=== PATIENT | male | born 1995 | race Caucasian/White ===

== ENCOUNTER 2018-10-08 21:28 | Emergency (ER) | payer SELFPAY ==
[2018-10-08] MEDS ORDERED: Sodium Chloride 0.9% 2.5 ML Syringe FLUSH PRN (21:58)
[2018-10-08] MEDS ORDERED: Sodium Chloride 0.9% 10 ML Syringe FLUSH PRN (21:58)
[2018-10-08] MEDS ORDERED: Aspirin 81 MG Tab.Chew PO ONE (22:09)
[2018-10-08] MEDS ORDERED: Ketorolac 30 MG/ML SDV IVPUSH ONE (22:09)
[2018-10-08] MEDS ORDERED: Sodium Chloride 0.9% 1,000 ML IV ONE (22:09)
--- NOTE | 2018-10-08 22:13 | EDM.PDOC ---
ED HPI GENERAL MEDICAL PROBLEM - General Chief Complaint: Chest Pain Stated Complaint: PT HAS CHEST PAIN Time Seen by Provider: 10/08/18 21:57 - History of Present Illness INITIAL COMMENTS - FREE TEXT/NARRATIVE: HISTORY AND PHYSICAL: History of present illness: The patient is a 23-year-old male with no significant past medical history who presents with 2 1/2 days of having shortness of breath and then points tenderness on the left side of his chest mostly when he is at work or doing activities. 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 He has no significant social history, only chews tobacco and occasionally drinks but no drug use, he has no significant family history for cardiac disease and he has been eating and drinking normally. When he gets these episodes he says he sometimes gets sweaty but it is difficult to say because he is often at work but he does not get nauseated or vomit and he doesn't get lightheaded or pass out. He has no leg pain or swelling. He has no recent trauma and no upper respiratory symptoms. He's been taking Tylenol only for the pain and when he indicates the area of the chest discomfort is just to the left of the sternum and does not radiate. Review of systems: As per history of present illness and below otherwise all systems reviewed and negative. Past medical history: As per history of present illness and as reviewed below otherwise noncontributory. Surgical history: As per history of present illness and as reviewed below otherwise noncontributory. Social history: No reported history of drug or alcohol abuse. Family history: As per history of present illness and as reviewed below otherwise noncontributory. Physical exam: General: Well-developed well-nourished man who is fit appearing and nontoxic and moves easily in the ED. Vital signs are noted by me. HEENT: Atraumatic, normocephalic, pupils reactive, negative for conjunctival pallor or scleral icterus, mucous membranes moist, throat clear, neck supple, nontender, trachea midline. Lungs: Clear to auscultation, breath sounds equal bilaterally, chest wall with some mild point tenderness just at the left of the sternum without defects deformities or crepitus. The patient says that this does reproduce the pain some level. Heart: S1S2, regular, negative for clicks, rubs, or JVD. Abdomen: Soft, nondistended, nontender. Negative for masses or hepatosplenomegaly. Negative for costovertebral tenderness. Pelvis: Stable nontender. Genitourinary: Deferred. Rectal: Deferred. Extremities: Atraumatic, negative for cords or calf pain. Neurovascular unremarkable. No pedal edema or leg asymmetry Neuro: Awake, alert, oriented. Cranial nerves II through XII unremarkable. Cerebellum unremarkable. Motor and sensory unremarkable throughout. Exam nonfocal. Diagnostics: EKG chest x-ray CBC CMP troponin TSH d-dimer Therapeutics: IV O2 monitor IV fluids Toradol aspirin Patient says that he feels basically the same since arriving here but he is aware of all testing results and I have offered him observation admission which he declines. He would like to do follow-up. Except them. Impression: Episodic chest pain with dyspnea Definitive disposition and diagnosis as appropriate pending reevaluation and review of above. Treatments WEB ARCHITECT: Reports: Aspirin left side chest Pain Score (Numeric/FACES): 5 - Related Data Allergies Allergy/AdvReac Type Severity Reaction Status Date / Time No Known Allergies Allergy Verified 10/08/18 21:31 Home Meds: Home Meds . [No Known Home Meds] 10/08/18 [History] Past Medical History - Past Health History Medical/Surgical History: Denies Medical/Surgical History Respiratory History: Reports: None Gastrointestinal History: Reports: None Genitourinary History: Reports: None Musculoskeletal History: Reports: None Neurological History: Reports: None Psychiatric History: Reports: None Endocrine/Metabolic History: Reports: None Hematologic History: Reports: None Oncologic (Cancer) History: Reports: None Dermatologic History: Reports: None - Infectious Disease History Infectious Disease History: Reports: Chicken Pox - Past Surgical History Head Surgeries/Procedures: Reports: None Social & Family History - Family History Family Medical History: Noncontributory - Tobacco Use Smoking Status *Q: Current Every Day Smoker Years of Tobacco use: 3 Packs/Tins Daily: 0.5 - Caffeine Use Caffeine Use: Reports: None - Recreational Drug Use Recreational Drug Use: No ED ROS GENERAL - Review of Systems Review Of Systems: ROS reveals no pertinent complaints other than HPI. ED EXAM, GENERAL - Physical Exam Exam: See Below (See dictation) Course - Vital Signs Last Recorded V/S: Last Vital Signs Temp 36.6 C 10/08/18 21:32 Pulse 83 10/08/18 23:11 Resp 16 10/08/18 23:11 BP 129/68 10/08/18 23:11 Pulse Ox 98 10/08/18 23:11 - Orders/Labs/Meds Orders: Active Orders 24 hr Category Date Time Status Cardiac Monitoring [RC] . DIRECTED Care 10/08/18 21:58 Active EKG Documentation Completion [RC] STAT Care 10/08/18 21:58 Active Oxygen Therapy, ED [RC] ASDIRECTED Care 10/08/18 21:58 Active Pulse Oximetry [RC] ASDIRECTED Care 10/08/18 21:58 Active Sodium Chloride 0.9% [Saline Flush] Med 10/08/18 21:58 Active 10 ml FLUSH ASDIRECTED PRN Sodium Chloride 0.9% [Saline Flush] Med 10/08/18 21:58 Active 2.5 ml FLUSH ASDIRECTED PRN Saline Lock Insert [OM.PC] Stat Oth 10/08/18 21:58 Ordered Medication Orders Sodium Chloride (Saline Flush) 10 ml FLUSH ASDIRECTED PRN PRN Reason: Keep Vein Open Sodium Chloride (Saline Flush) 2.5 ml FLUSH ASDIRECTED PRN PRN Reason: Keep Vein Open Labs: Laboratory Tests 10/08/18 10/08/18 10/08/18 Range/Units 22:19 22:19 22:19 WBC 7.11 (4.0-11.0) K/uL RBC 4.63 (4.50-5.90) M/uL Hgb 14.1 (13.0-17.0) g/dL Hct 41.6 (38.0-50.0) % MCV 89.8 (80.0-98.0) fL MCH 30.5 (27.0-32.0) pg MCHC 33.9 (31.0-37.0) g/dL RDW Std Deviation 45.0 (28.0-62.0) fl RDW Coeff of Obey 14 (11.0-15.0) % Plt Count 272 (150-400) K/uL MPV 9.10 (7.40-12.00) fL Neut % (Auto) 34.2 L (48.0-80.0) % Lymph % (Auto) 46.8 H (16.0-40.0) % [place] % (Auto) 8.9 (0.0-15.0) % Eos % (Auto) 10.0 H (0.0-7.0) % Baso % (Auto) 0.1 (0.0-1.5) % Neut # (Auto) 2.4 (1.4-5.7) K/uL Lymph # (Auto) 3.3 H (0.6-2.4) K/uL [place] # (Auto) 0.6 (0.0-0.8) K/uL Eos # (Auto) 0.7 (0.0-0.7) K/uL Baso # (Auto) 0.0 (0.0-0.1) K/uL Nucleated RBC % 0.0 /100WBC Nucleated RBCs # 0 K/uL D-Dimer, Quantitative 0.58 H (0.0-0.50) mg/L FEU Sodium 141 (136-148) mmol/L Potassium 3.7 (3.5-5.1) mmol/L Chloride 106 (98-107) mmol/L Carbon Dioxide 27.1 (21.0-32.0) mmol/L BUN 16 (7.0-18.0) mg/dL Creatinine 0.9 (0.8-1.3) mg/dL Est Cr Clr Drug Dosing 137.12 mL/min Estimated GFR (MDRD) > 60.0 ml/min Glucose 92 (74-106) mg/dL Calcium 9.3 (8.5-10.1) mg/dL Total Bilirubin 1.0 (0.2-1.0) mg/dL AST 19 (15-37) IU/L ALT 28 (14-63) IU/L Alkaline Phosphatase 80 (46-116) U/L Troponin I < 0.050 (0.000-0.056) ng/mL Total Protein 7.8 (6.4-8.2) g/dL Albumin 4.1 (3.4-5.0) g/dL Globulin 3.7 (2.6-4.0) g/dL Albumin/Globulin Ratio 1.1 (0.9-1.6) TSH 3rd Generation 1.90 (0.36-3.74) uIU/mL Meds: Medications Generic Name Dose Route Start Last Admin Trade Name Freq PRN Reason Stop Dose Admin Sodium Chloride 10 ml 10/08/18 21:58 Saline Flush FLUSH ASDIRECTED PRN Keep Vein Open Sodium Chloride 2.5 ml 10/08/18 21:58 Saline Flush FLUSH ASDIRECTED PRN Keep Vein Open Discontinued Medications Generic Name Dose Route Start Last Admin Trade Name Freq PRN Reason Stop Dose Admin Aspirin 324 mg 10/08/18 22:09 10/08/18 22:29 Aspirin PO 10/08/18 22:10 324 mg ONETIME ONE Administration Sodium Chloride 1,000 mls @ 999 mls/hr 10/08/18 22:09 10/08/18 22:29 Normal Saline IV 10/08/18 23:09 999 mls/hr STAT ONE Administration Iopamidol 75 ml 10/08/18 23:55 10/08/18 23:55 Isovue Multipack-370 (76%) IVPUSH 10/08/18 23:56 75 ml ONETIME STA Administration Ketorolac Tromethamine 30 mg 10/08/18 22:09 10/08/18 22:29 Toradol IVPUSH 10/08/18 22:10 30 mg ONETIME ONE Administration Departure - Departure Time of Disposition: 00:24 Disposition: Home, Self-Care 01 Condition: Good Clinical Impression: Chest pain Qualifiers: Chest pain type: unspecified Qualified Code(s): R07.9 - Chest pain, unspecified Dyspnea Qualifiers: Dyspnea type: unspecified Qualified Code(s): R06.00 - Dyspnea, unspecified - Discharge Information Referrals: PCP,None [Primary Care Provider] - Forms: ED Department Discharge Additional Instructions: The following information is given to patients seen in the emergency department who are being discharged to home. This information is to outline your options for follow-up care. We provide all patients seen in our emergency department with a follow-up referral. The need for follow-up, as well as the timing and circumstances, are variable depending upon the specifics of your emergency department visit. If you don't have a primary care physician on staff, we will provide you with a referral. We always advise you to contact your personal physician following an emergency department visit to inform them of the circumstance of the visit and for follow-up with them and/or the need for any referrals to a consulting specialist. The emergency department will also refer you to a specialist when appropriate. This referral assures that you have the opportunity for followup care with a specialist. All of these measure are taken in an effort to provide you with optimal care, which includes your followup. Under all circumstances we always encourage you to contact your private physician who remains a resource for coordinating your care. When calling for followup care, please make the office aware that this follow-up is from your recent emergency room visit. If for any reason you are refused follow-up, please contact the emergency department at and ask to speak to the emergency department charge nurse. [facility] Primary care- Internal Medicine and Family [address] [address] Please call the clinic this morning at 8:30 and schedule a follow-up appointment making sure to tell them that you are on the expedited list. Please take 02/28/24 milligram aspirin every day until you're followed up in the clinic. Push hydration and return to ER as needed and as discussed - My Orders Last 24 Hours: My Active Orders 10/08/18 21:58 Cardiac Monitoring [RC] . DIRECTED EKG Documentation Completion [RC] STAT Oxygen Therapy, ED [RC] ASDIRECTED Pulse Oximetry [RC] ASDIRECTED Sodium Chloride 0.9% [Saline Flush] 10 ml FLUSH ASDIRECTED PRN Sodium Chloride 0.9% [Saline Flush] 2.5 ml FLUSH ASDIRECTED PRN Saline Lock Insert [OM.PC] Stat - Assessment/Plan Last 24 Hours: My Active Orders 10/08/18 21:58 Cardiac Monitoring [RC] . DIRECTED EKG Documentation Completion [RC] STAT Oxygen Therapy, ED [RC] ASDIRECTED Pulse Oximetry [RC] ASDIRECTED Sodium Chloride 0.9% [Saline Flush] 10 ml FLUSH ASDIRECTED PRN Sodium Chloride 0.9% [Saline Flush] 2.5 ml FLUSH ASDIRECTED PRN Saline Lock Insert [OM.PC] Stat
[2018-10-08 23:01] LABS: CHLORIDE,CL 106 mmol/L (98-107); SODIUM,NA 141 mmol/L (136-148)
--- NOTE | 2018-10-08 23:18 | CR ---
Indication: Chest pain. SOB Technique: Chest 1 view Comparison: None Findings/Impression: Cardiovascular and mediastinum: Heart size and vasculature are normal in caliber and appearance. Mediastinum is within normal limits. Lungs and pleural space: Lungs are clear. No sign of infiltrate or mass. No sign of pleural effusion. No pneumothorax. Bones and soft tissues: No significant findings. Dictated by Abdullahi Vance MD @ 10/08/2018 11:16:06 PM Dictated by: Abdullahi Vance MD @ 10/08/2018 23:16:52 (Electronically Signed)
[2018-10-08] MEDS ORDERED: Iopamidol 755 MG/ML 500 ML Multipack Bottle IVPUSH STA (23:55)
--- NOTE | 2018-10-09 00:17 | CT ---
INDICATION: Intermittent chest pain for 2 days TECHNIQUE: CT chest pulmonary PE protocol acquired with 75 cc Isovue 370 IV contrast. COMPARISON: Chest radiograph from same date FINDINGS: Cardiovascular structures: Normal vascular enhancement of the pulmonary arteries, no sign of pulmonary embolism. Heart size is normal. No sign of aneurysm in the thoracic aorta. Mediastinum and eleanor: No mass or adenopathy. Lungs: Clear. Pleura and pericardium: No effusions. Chest wall and axilla: No mass or adenopathy. Upper abdomen: Unremarkable. Bones: No significant findings. IMPRESSION: Unremarkable chest CT. Specifically, no pulmonary embolism or pneumonia. Please note that all CT scans at this facility use dose modulation, iterative reconstruction, and/or weight-based dosing when appropriate to reduce radiation dose to as low as reasonably achievable. Dictated by Nadine Schwarz MD @ Oct 09 2018 12:17AM Signed by Dr. Nadine Schwarz @ Oct 09 2018 12:17AM
== END 2018-10-09 00:45 | disposition home or self-care (01) ==
LOC: MW.ED 21:28
DX: R06.02 Shortness of breath (principal); R07.9 Chest pain, unspecified; F17.210 Nicotine dependence, cigarettes, uncomplicated
CPT/HCPCS: 36415; 71045; 71275; 80053; 84443; 84484; 85025; 85379; 93005; 96361; 96374; 99285; A9270; J1885; J7040; Q9967; 99284

== ENCOUNTER 2024-05-28 17:52 | Emergency (ER) | payer BC ==
[2024-05-28 18:07] LABS: BASOPHILS ABSOLUTE AUTO 0.03 K/uL (0.00-0.20); BASOPHILS PERCENT AUTO 0.3 % (0.0-1.0); EOSINOPHILS ABSOLUTE AUTO 0.12 K/uL (0.00-0.45); EOSINOPHILS PERCENT AUTO 1.2 % (0.0-6.0); HEMOGLOBIN 13.8 g/dL (14.0-18.0); IMMATURE GRAN ABSOLUTE AUTO 0.02 K/uL (0.00-0.05); IMMATURE GRAN PERCENT AUTO 0.2 % (0.0-0.4); LYMPHOCYTES ABSOLUTE AUTO 3.91 K/uL (1.00-4.80); LYMPHOCYTES PERCENT AUTO 40.7 % (24.0-44.0); MEAN CORPUSCULAR HEMOGLOBIN 30.9 pg (28.0-32.0); MEAN CORPUSCULAR HGB CONC 34.5 g/dL (32.0-36.0); MEAN CORPUSCULAR VOLUME 89.5 fL (83.0-99.0); MEAN PLATELET VOLUME 8.3 fL (9.4-12.4); MONOCYTES ABSOLUTE AUTO 0.85 K/uL (0.00-0.80); MONOCYTES PERCENT AUTO 8.8 % (0.0-8.0); NEUTROPHILS ABSOLUTE AUTO 4.68 K/uL (1.80-7.70); NEUTROPHILS PERCENT AUTO 48.8 % (41.0-71.0); PLATELET COUNT,PLT 253 K/uL (150-400); RED BLOOD CELL COUNT 4.47 M/uL (4.52-5.90); WHITE BLOOD CELL COUNT,WBC 9.61 K/uL (3.9-11.3)
[2024-05-28] MEDS: Sodium Chloride 0.9% 1,000 ML IV ONE (18:33)
[2024-05-28 18:37] LABS: A/G RATIO 1.3 (0.9-1.6); ALANINE AMINOTRANSFERASE,ALT 48 IU/L (14-63); ALBUMIN 4.7 g/dL (3.4-5.0); ALKALINE PHOSPHATASE 70 U/L (46-116); ASPARTATE AMNIOTRANSFERASE,AST 38 IU/L (15-37); BILIRUBIN TOTAL 1.1 mg/dL (0.2-1.0); BLOOD UREA NITROGEN,BUN 16 mg/dL (7.0-18.0); CALCIUM 8.9 mg/dL (8.5-10.1); CARBON DIOXIDE,CO2 26.8 mmol/L (21.0-32.0); CHLORIDE,CL 100 mmol/L (98-107); CREATININE 1.5 mg/dL (0.8-1.3); ESTIMATED GFR 65 mL/min (>60); GLUCOSE RANDOM 125 mg/dL (74-106); MAGNESIUM 1.8 mg/dL (1.8-2.4); POTASSIUM,K 3.3 mmol/L (3.5-5.1); PRO B-TYPE NATRIUR PEPT,BNPPRO < 5 pg/mL (0-125); PROTEIN TOTAL,TP 8.2 g/dL (6.4-8.2); SODIUM,NA 138 mmol/L (136-148)
== END 2024-05-28 19:11 | disposition home or self-care (01) ==
LOC: MW.ED 17:52
DX: R07.89 Other chest pain (principal); F17.210 Nicotine dependence, cigarettes, uncomplicated; Z75.8 Other problems related to medical facilities and other health care
CPT/HCPCS: 36415; 71045; 80053; 83735; 83880; 84484; 85025; 85379; 93005; 99285; J7030; 93010; 99283

== ENCOUNTER 2024-10-21 09:35 | Emergency (ER) | payer BC ==
[2024-10-21 10:25] LABS: BASOPHILS ABSOLUTE AUTO 0.02 K/uL (0.00-0.20); BASOPHILS PERCENT AUTO 0.4 % (0.0-1.0); EOSINOPHILS ABSOLUTE AUTO 0.09 K/uL (0.00-0.45); EOSINOPHILS PERCENT AUTO 1.7 % (0.0-6.0); IMMATURE GRAN ABSOLUTE AUTO 0.03 K/uL (0.00-0.05); IMMATURE GRAN PERCENT AUTO 0.6 % (0.0-0.4); LYMPHOCYTES ABSOLUTE AUTO 2.37 K/uL (1.00-4.80); LYMPHOCYTES PERCENT AUTO 45.3 % (24.0-44.0); MEAN PLATELET VOLUME 8.8 fL (9.4-12.4); MONOCYTES ABSOLUTE AUTO 0.48 K/uL (0.00-0.80); MONOCYTES PERCENT AUTO 9.2 % (0.0-8.0); NEUTROPHILS ABSOLUTE AUTO 2.24 K/uL (1.80-7.70); NEUTROPHILS PERCENT AUTO 42.8 % (41.0-71.0); NRBC ABSOLUTE 0.00 K/uL (0.00-0.02); NRBC PERCENT 0.0 /100WBC (0.0-0.2); PLATELET COUNT,PLT 255 K/uL (150-400); RED BLOOD CELL COUNT 4.70 M/uL (4.52-5.90); WHITE BLOOD CELL COUNT,WBC 5.23 K/uL (3.9-11.3)
[2024-10-21] MEDS: Alum Hydrox/Mag Hydrox/Simeth 15 ML, Lidocaine 2% 5 ML PO ONE (10:28)
[2024-10-21 10:41] LABS: A/G RATIO 1.1 (0.9-1.6); ALANINE AMINOTRANSFERASE,ALT 50.0 IU/L (14-63); ASPARTATE AMNIOTRANSFERASE,AST 25.0 IU/L (15-37); BILIRUBIN TOTAL 0.6 mg/dL (0.2-1.0); BLOOD UREA NITROGEN,BUN 12.0 mg/dL (7.0-18.0); CARBON DIOXIDE,CO2 29.2 mmol/L (21.0-32.0); CHLORIDE,CL 105.0 mmol/L (98-107); CREATININE 1.0 mg/dL (0.8-1.3); EST CRCL DRUG DOSING (CG) 113.56 mL/min; ESTIMATED GFR 105.0 mL/min (>60); GLUCOSE RANDOM 105.0 mg/dL (74-106); POTASSIUM,K 3.8 mmol/L (3.5-5.1); PROTEIN TOTAL,TP 8.3 g/dL (6.4-8.2); SODIUM,NA 143.0 mmol/L (136-148)
[2024-10-21] MEDS: Iopamidol 755 MG/ML 500 ML Multipack Bottle IVPUSH STA (12:03)
== END 2024-10-21 14:16 | disposition home or self-care (01) ==
LOC: MW.ED 09:35
DX: K21.9 Gastro-esophageal reflux disease without esophagitis (principal); R07.9 Chest pain, unspecified
CPT/HCPCS: 36415; 71045; 71275; 80053; 83690; 84484; 85025; 85379; 93005; 96360; 99284; A9270; J3490; J7030; Q9967; 93010; 99283